=== PATIENT | female | born 1980 | race Two or more races ===

== ENCOUNTER 2024-07-30 11:32 | Emergency (ER) | payer OTHER ==
[2024-07-30 11:40] VITALS: BP 141/90; PULSE 88; RESP 16; TEMP 98.3; O2SAT 100
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
[2024-07-30] MEDS ORDERED: IBUP-1456 PO (13:12)
== END 2024-07-30 13:28 | disposition home or self-care (01) ==
LOC: ER 11:32
DX: S46.911A Strain of unspecified muscle, fascia and tendon at shoulder and upper arm level, right arm, initial encounter (principal); S93.601A Unspecified sprain of right foot, initial encounter; V09.9XXA Pedestrian injured in unspecified transport accident, initial encounter; Y93.89 Activity, other specified; Y92.89 Other specified places as the place of occurrence of the external cause; Y99.8 Other external cause status
CPT/HCPCS: 73030; 73630